=== PATIENT | male | born 1980 | race Caucasian/White ===

== ENCOUNTER 2016-09-19 23:00 | Inpatient (IN) | payer OTHER ==
--- NOTE | ~2016-09-19 | PN ---
Unit #: [id number] #: [id number] Patient: HATTIE YOUNG JR [id number] [facility] [address] [place] [address] [id number] MR#: [id number] NAME: HATTIE YOUNG JR ROOM: P266 Age: 36 Sex: M Admission Date: 09/20/2016 : 1980 Attending Physician: Shaggy Moore M.D. Admitting Physician: Shaggy Moore M.D. Primary Care Physician: Generic Doctor Not In System [facility] PROGRESS NOTES DATE 09/22/2016 DISCUSSION Hattie continues to be isolative in his room and attends few groups and activities. He does occasionally come out to speak to staff. Mood remains depressed and irritable with a congruent affect. He is alert and fully oriented with no active psychosis. He continues have some SI. ASSESSMENT Major depression. PLAN Continue current treatment plan. Dictated by... Shaggy Moore M.D. MRH/bzg TD: 09/24/2016 10:24 JOB #: [id number] [facility] PROGRESS NOTES Page 1 of 1 X Shaggy Moore MD X PROGRESS NOTE
--- NOTE | ~2016-09-19 | PA ---
Unit #: [id number] #: [id number] Patient: HATTIE MACK JR [id number] [place] [address] [id number] MR#: [id number] NAME: HATTIE MACK JR ROOM: P266 Age: 36 Sex: M Admission Date: 09/20/2016 : 1980 Date of Assessment: 09/21/2016 Attending Physician: Shaggy Moore M.D. Admitting Physician: Shaggy Moore M.D. Primary Care Physician: Generic Doctor Not In System PSYCHIATRIC ASSESSMENT INFORMANTS The patient reliable; OLOP, reliable. CHIEF COMPLAINT Suicidal ideation. HISTORY OF PRESENT ILLNESS Mr. Mack is a 36-year-old man who reports he has been using cocaine and amphetamines to excess. He said that yesterday his girlfriend "signed our baby to the state" and he was in possession of a gun which was confiscated by police. He was unable to contract for safety and was admitted for stabilization. PAST PSYCHIATRIC HISTORY One previous admission to this facility in 2013 for amphetamine abuse. He is not currently taking any psychiatric medications. FAMILY PSYCHIATRIC HISTORY No reported family history of mental illness or substance abuse. SOCIAL HISTORY The patient denies a history of abuse. He is a single heterosexual man who has a girlfriend and they have a child together that was recently given up to state custody. He has no current legal charges, but has previously been charged with drug possession assault, DUI, and terroristic threatening. PAST MEDICAL HISTORY No chronic medical problems. MEDICATIONS None currently. ALLERGIES No known medication allergies. SUBSTANCE USE HISTORY The patient has been abusing stimulants including methamphetamine and cocaine. He has also been abusing cannabis. MENTAL STATUS EXAMINATION The patient presented as a mildly disheveled man who appeared older than his stated age. He was irritable, but cooperative with the examination. Unit #: [id number] #: [id number] Patient: HATTIE MACK JR His speech was spontaneous and easily understood. Musculoskeletal examination was calm. His mood was irritable with a congruent affect. He was alert and fully oriented. His memory and concentration were fair to good. His thought processes were goal directed with no active psychosis. He reported vague suicidal ideation, but contracted for safety in the hospital. Insight and judgment were fair. Fund of knowledge and abstraction were fair. ASSETS AND LIABILITIES Assets; the patient is in general good health and knows local resources. Liabilities; include ongoing amphetamine abuse. 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 AXIS II: Noted antisocial traits. AXIS III: None. AXIS IV: AXIS V: PSYCHIATRIC PLAN The patient was admitted and placed on suicide precautions. There is not a chemical detox from amphetamines, but we will provide an antidepressant and sleep aid. He will enroll in dual diagnosis groups and activities, and a physical examination and laboratory studies will be ordered and reviewed. Treatment goals are resolution of SI, improvement in mood, improvement in insight, and improvement in coping skills. DISCHARGE PLANNING Follow up with community mental health, chemical dependency resources, and primary care physician. ESTIMATED LENGTH OF STAY 5 days. Dictated by... Shaggy Moore M.D. KOREY/nicolasa TD: 09/21/2016 21:50 JOB #: [id number] PSYCHIATRIC ASSESSMENT Page 1 of 1 X Shaggy Moore MD PSYCHIATRIC ASSESSMENT
--- NOTE | ~2016-09-19 | HP ---
Unit #: [id number] #: [id number] Patient: ALO YOUNG JR [id number] [place] [address] [id number] MR#: [id number] NAME: ALO YOUNG JR ROOM: P266 Age: 36 Sex: M Admission Date: 09/20/2016 : 1980 Attending Physician: Shaggy Moore M.D. Admitting Physician: Shaggy Moore M.D. Primary Care Physician: Generic Doctor Not In System HISTORY AND PHYSICAL HISTORY OF PRESENT ILLNESS Alo is a 36 year old admitted to [address] [place] [address] because of his continued substance abuse which includes methamphetamine. PAST MEDICAL HISTORY Long history of illicit substance abuse to include meth which he continues to use. PAST SURGICAL HISTORY Knee. ALLERGIES No known drug allergies. SOCIAL HISTORY Smokes less than 1 pack per day. Denies alcohol. Admits to a history of illicit substance abuse to include cocaine and methamphetamine. FAMILY HISTORY Medically noncontributory. REVIEW OF SYSTEMS CONSTITUTIONAL: No fever or chills. HEENT: Denies any sore throat, ear pain or runny nose. CARDIOVASCULAR: Denies chest pain, irregular heart rhythm or palpitations. CHEST: Denies shortness of breath or cough. No hemoptysis. GASTROINTESTINAL: Denies nausea, vomiting, diarrhea or chronic constipation. ENDOCRINE: Denies history of increased thirst or urination. No recent significant weight loss or gain. GENITOURINARY: Denies dysuria, frequency, or hematuria. SKIN: Denies any rashes. HEMATOLOGIC: Denies history of increased bleeding or bruising. MUSCULOSKELETAL: Denies any hot, swollen joints. No generalized muscle pain. NEUROLOGIC: Denies problems with vision or speech. No frequent, severe headaches. No numbness, tingling or weakness in any extremities. Denies loss of bladder or bowel control. CURRENT MEDICATIONS 1. Desyrel 50 mg q.h.s. 2. Milk of Magnesia p.r.n. 3. Maalox p.r.n. Unit #: [id number] #: [id number] Patient: ALO YOUNG JR 4. Tylenol p.r.n. 5. Nicotine patch 14 mg daily. PHYSICAL EXAMINATION GENERAL: Alert, well-nourished, in no apparent distress. VITAL SIGNS: Blood pressure 124/84, heart rate 72, respirations 16, temperature 98.6. WEIGHT: 245. HEIGHT: 6 feet 0 inches. SKIN: Warm and dry without rash or lesion. HEENT: Normocephalic. TMs not viewed. Oral and nasal passages clear. Conjunctivae clear. PERRLA. EOMs intact. NECK: Supple without lymphadenopathy or thyromegaly. HEART: Regular rate and rhythm without murmur. LUNGS: Clear. ABDOMEN: Soft, nontender. : Not done. EXTREMITIES: No evidence of cyanosis, clubbing or edema. Moves all without focal deficit. NEUROLOGICAL: Grossly within normal limits. Cranial Nerves: II: Visual josue are intact. III, IV AND : Extraocular movements are intact. Pupils are equal, round and reactive to light. V: Facial sensation is grossly normal. VII: Facial movements and expression are normal. VIII: Auditory acuity grossly intact. IX, X: Uvula is midline. Phonation is normal. XI: Patient shrugs shoulders and turns head normally. XII: Tongue protrudes in the midline. Sensory and Motor Function: Sensory and motor sensation is grossly normal. Motor: moves all extremities well. Coordination: Gait is normal. Deep Tendon Reflexes: Intact. IMPRESSION Psychiatric admission. RECOMMENDATIONS PSYCHIATRIC: Per psychiatrist. MEDICAL: See no contraindications to participate in facility's activities. MEDICAL PROGNOSIS Good. MEDICAL CONDITION Stable. Dictated by... Zenaida Clarke P.A.-C. for Ismael Weinberg/sophia TD: 09/20/2016 17:47 JOB #: [id number] Unit #: [id number] #: [id number] Patient: ALO YOUNG JR HISTORY AND PHYSICAL Page 1 of 1 X Zenaida Clarke HISTORY AND PHYSICAL
--- NOTE | ~2016-09-19 | DS ---
Unit #: [id number] #: [id number] Patient: HATTIE YOUNG JR [id number] [place] [address] [id number] MR#: [id number] NAME: HATTIE YOUNG JR ROOM: P266 Age: 36 Sex: M Admission Date: 09/20/2016 : 1980 Discharge Date: 09/25/2016 Attending Physician: Shaggy Moore M.D. DISCHARGE SUMMARY REASON FOR ADMISSION Hattie is a 36-year-old man with a history of depression and using drugs to abuse. He had plans to shoot himself with a gun and was unable to contract for safety. He was admitted for stabilization. LABORATORY DATA Please see hospital chart. HOSPITAL COURSE The patient was admitted and placed on suicide precautions. Paxil 20 mg at bedtime was initiated for treatment of depression with trazodone as needed for insomnia. The patient was isolative when irritable during the first couple of days of his hospitalization, but his mood gradually improved and he was able to participate more freely in psychotherapy groups and activities. He did not make any suicidal statements or gestures in the hospital and on the day of discharge, he was able to contract for safety once again in the outpatient setting. DISCHARGE DIAGNOSES AXIS I: Major depression F33.2; amphetamine dependence. AXIS II: Antisocial traits. AXIS III: None. AXIS IV: AXIS V: DISCHARGE INSTRUCTIONS Follow up with primary care physician and [facility]. DISCHARGE MEDICATIONS Paxil 20 mg at bedtime for depression. CONDITION AT DISCHARGE Improved. PROGNOSIS Good. DIET Per primary care doctor. ACTIVITY Per primary care doctor. Unit #: [id number] #: [id number] Patient: HATTIE YOUNG JR Dictated by... Shaggy Moore M.D. [facility]/modl TD: 09/25/2016 17:47 JOB #: [id number] DISCHARGE SUMMARY Page 1 of 1 X Shaggy Moore MD DISCHARGE SUMMARY
[~2016-09-19 23:00] MED LIST: IBUPROFEN PO; LORTAB 7.5-5001 TAB PO
== END 2016-09-25 11:10 | disposition home or self-care (01) | DRG 897 ==
LOC: P2L 09-20 09:30
PROC: HZ2ZZZZ Detoxification Services for Substance Abuse Treatment (ICD-10-PCS; principal; 2016-09-20)
DX: F15.24 Other stimulant dependence with stimulant-induced mood disorder (principal); F33.9 Major depressive disorder, recurrent, unspecified; F60.2 Antisocial personality disorder; F17.210 Nicotine dependence, cigarettes, uncomplicated